=== PATIENT | female | born 1960 | race Caucasian/White ===

== ENCOUNTER 2016-08-28 05:11 | Day surgery (SDC) | payer OTHER ==
[~2016-08-28 05:11] MED LIST: ADALAT CC60 MG PO; AMB10 PO; AMERGE2.5 MG PO; ASAB PO; AUG500 PO; BRILINTA90 MG PO; FLEX PO; HYZAAR 100/25 T1 TAB PO; KLOR-CON M2020 MEQ PO; L20 PO; LOM PO; MOBIC15 MG PO; PRILOSEC OTC20 MG PO; PROAIR HFA INH; T3 PO; TOPXL100 PO; VITC500 PO; VIVELLE SY0.1 MG/24 TOP; XANAX1 MG PO; ZOL50 PO
[2016-10-26] MEDS ORDERED: DEPAKOT250 PO (14:48)
[2016-10-26] MEDS ORDERED: FLEXI JOIN1 PO (14:55)
[2016-10-26] MEDS ORDERED: PROTONIX20 MG PO (14:56)
[2016-10-26] MEDS ORDERED: VENTOLIN HFA INH (14:59)
== END 2016-08-28 07:10 | disposition home or self-care (01) ==
LOC: SDC 05:11
PROVIDERS: Orthopaedic Surgery Orthopaedic Surgery of the Spine
PROC: 3E0S33Z Introduction of Anti-inflammatory into Epidural Space, Percutaneous Approach (ICD-10-PCS; principal; 2016-08-28 07:00)
DX: M54.16 Radiculopathy, lumbar region (principal); I50.9 Heart failure, unspecified; I11.0 Hypertensive heart disease with heart failure; J44.9 Chronic obstructive pulmonary disease, unspecified; M19.90 Unspecified osteoarthritis, unspecified site; F32.9 Major depressive disorder, single episode, unspecified; M79.7 Fibromyalgia; Z90.49 Acquired absence of other specified parts of digestive tract; Z90.710 Acquired absence of both cervix and uterus
CPT/HCPCS: J2250; J3010; Q9967

== ENCOUNTER 2016-10-30 07:01 | Inpatient (IN) | payer OTHER ==
[2016-10-23 13:27] LABS: BASOPHILS 0.3 %; BASOPHILS ABSOLUTE 0.02 10/3/uL (0.0-0.16); EOSINOPHILS 3.5 %; HEMATOCRIT 40.2 % (36.0-48.0); HEMOGLOBIN 13.6 g/dL (12.0-16.0); IMMATURE GRANULOCYTES 0.2 %; IMMATURE GRANULOCYTES ABSOLUTE 0.01 10/3/uL (0.0-0.11); LYMPHOCYTES 29.1 %; LYMPHOCYTES ABSOLUTE 1.68 10/3/uL (0.67-4.30); MEAN CORPUS HGB CONC 33.8 g/dL (32.0-36.0); MEAN CORPUSCULAR HEMOGLOB 32.2 pg (26.0-34.0); MEAN CORPUSCULAR VOLUME 95.3 fL (80-100); MEAN PLATELET VOLUME 10.1 fL (9.2-13.0); MONOCYTES 6.9 %; NEUTROPHILS ABSOLUTE 3.46 10/3/uL (2.02-8.40); PLATELET COUNT 230 10/3/uL (150-400); RBC DISTRIBUTION WIDTH 13.5 % (12.0-16.0); RED CELL COUNT 4.22 10/6/uL (4.0-5.6); WHITE BLOOD CELLS 5.8 10/3/uL (4.5-10.5)
[2016-10-23 13:28] LABS: MANUAL DIFF NO %
[2016-10-23 13:42] LABS: BUN (BLOOD UREA NITROGEN) 8 MG/DL (6-23); CALCIUM, SERUM 9.5 MG/DL (8.5-10.4); CHLORIDE, SERUM 103 MMOL/L (96-112); CO2 (CARBON DIOXIDE) 30 MMOL/L (24-34); CREATININE 0.86 MG/DL (0.55-1.02); GFR AFRICAN AMERICAN 88 ML/MIN (>=60); GFR NON AFRICAN AMERICAN 76 ML/MIN (>=60); GLUCOSE, SERUM 104 MG/DL (60-99); SODIUM, SERUM 136 MMOL/L (135-148)
--- NOTE | ~2016-10-30 | OP ---
Record Of Operation [facility] [address] [place]. [address] NAME: LISSY RODRIGUEZ : 60 STATUS : ADM IN PAT#: [id number] AGE: 56 ADM/REG DATE : 10/30/16 MR#: [id number] REPORT SERV DATE: 10/31/16 DICTATED BY: ONI OSBORNE DATE: 10/31/16 REPORT STATUS : Draft TRANSCRIBED BY: MODL DATE: 10/31/16 DATE OF PROCEDURE: 10/30/2016 PREOPERATIVE DIAGNOSIS: History of left lower quadrant bulge, suspect for left inguinal hernia versus ventral hernia. POSTOPERATIVE DIAGNOSIS: No evidence of ventral or inguinal hernia. PROCEDURE: Preperitoneal and left lower quadrant exploratory laparotomy with repair of iatrogenic small bowel injury. SURGEON: Oni Osborne M.D. RESIDENT SURGEON: Xavier Mcfadden M.D. ANESTHESIA: General. ESTIMATED BLOOD LOSS: 20 mL. DETAILS OF PROCEDURE: The patient arrived in the operating suite and was placed on the table in supine position. General anesthesia was obtained via an endotracheal tube. The abdomen was prepped and draped in a sterile manner. 0.5% Marcaine with epinephrine was infiltrated just below the umbilicus. A small incision was performed. Medial edge of the left rectus sheath was then incised and the rectus muscle retracted anterolaterally. Unilateral balloon dissecting trocar was inserted. The left edge of the symphysis pubis where it was inflated, deflated, and removed. 5 mm trocars were inserted in the lower midline after a structural balloon trocar was inserted into the preperitoneal space, which was insufflated with CO2 gas to 15 mmHg pressure. There was scarring in the left lower quadrant. There is no evidence of a direct inguinal hernia. The round ligament was identified and there was no evidence of a hernia sac about yet. Once the area was adequately inspected and there was no evidence of hernia, the preperitoneal space was desufflated. Attention was then turned to the initial site and the posterior rectus sheath was then incised and a trocar introduced but immediately was noted bowel contents. Trocars were removed. The spillage was removed with suction. There appeared to be no intraperitoneal spillage. The midline incision was then lengthened and carried down through the fascia with cautery and sharp dissection until clearance into the peritoneal cavity was then obtained. Adhesions around the area of adherent bowel to the anterior abdominal wall were then cleared and the area of antimesenteric perforation grasped with [place] clamp. The area was then more fully dissected. The adherent bowel was carefully sharply dissected away and the area of injury then repaired with interrupted 3-0 silk suture. There was no other area of injury. The left lower quadrant could not be palpated. There was no evidence of hernia. Fascia was then approximated with interrupted [id number] 0 PDS sutures. Subcutaneous tissue was irrigated. Skin closure was performed with lia. Sterile dressing was applied. The patient awakened and extubated and taken to PACU. Record Of Operation [facility] [address] [place]. [address] NAME: LISSY RODRIGUEZ : 60 STATUS : ADM IN [facility]#: [id number] AGE: 56 ADM/REG DATE : 10/30/16 MR#: [id number] REPORT SERV DATE: 10/31/16 DICTATED BY: ONI OSBORNE DATE: 10/31/16 REPORT STATUS : Draft TRANSCRIBED BY: REBA DATE: 10/31/16 /REBA Oni Osborne M.D. / [id number] CC: Deepika Aparicio M.D.
--- NOTE | ~2016-10-30 | DS ---
Discharge Summary [facility] [address] [place]. [address] NAME: LISSY RODRIGUEZ : 60 STATUS : DIS IN PAT#: [id number] AGE: 56 ADM/REG DATE : 10/30/16 MR#: [id number] REPORT SERV DATE: 11/17/16 DICTATED BY: ONI OSBORNE DATE: 11/16/16 REPORT STATUS : Draft TRANSCRIBED BY: REBA DATE: 11/16/16 Data Collection from hospitalization DISCHARGE DIAGNOSES: 1. History of left lower quadrant bulge, suspect for left inguinal hernia versus ventral hernia, status post preperitoneal and left lower quadrant exploratory laparotomy with repair of iatrogenic small bowel injury - no evidence of ventral or inguinal hernia. 2. Hypertension. 3. Peripheral vascular disease. 4. Chronic obstructive pulmonary disease. 5. Tobacco use. 6. Obstructive sleep apnea - noncompliant with CPAP. 7. Anxiety disorder. 8. Chronic pain syndrome. 9. Hyperlipidemia. CONSULTATIONS: None. PROCEDURES PERFORMED: Peritoneal and left lower quadrant exploratory laparotomy with repair of iatrogenic small bowel injury on 10/30/2016. MEDICATIONS: Depakote 250 mg twice a day, Hyzaar one tablet daily, Toprol-XL 100 mg every morning, Protonix 20 mg daily, Zoloft 50 mg daily, Ambien 10 mg at bedtime, Klor-Con 20 mEq every morning, aspirin 81 mg every morning, Xanax 1 mg twice a day as needed, Flexeril 10 mg at bedtime, Tylenol with Codeine one tablet three times a day as needed, Amerge 2.5 mg as needed, Lasix 20 mg twice a day, Mobic 15 mg every morning, Adalat CC 60 mg daily, glucosamine-chondroitin two tablets daily, Ventolin two puffs via inhaler every six hours as needed, Percocet 7.5/325 as instructed, and Phenergan as instructed. CONDITION AT DISCHARGE: Stable. DISPOSITION: The patient was discharged home with diet and activities as instructed. She would follow up with me on 11/08/2016 or 11/09/2016. HOSPITAL COURSE: This is a 56-year-old female who had complained of having pain and a knot in the left lower quadrant. 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 She has longstanding irritable bowel syndrome with issues of diarrhea. She said she had taken 12 Imodium on 10/18/2016. Treatment options were discussed and it was elected to proceed with surgical intervention. She was admitted to the hospital at this time for further evaluation and treatment. Upon admission, she was taken to the operating room where she underwent the above-mentioned procedure. She tolerated this well, and there were no complications. There was no evidence of ventral or inguinal hernia. The following day, she did complain of some pruritus. She remained n.p.o. except for medications. She was changed to morphine sulfate [employer]. On 11/01/2016, her pruritus had resolved. She had no new complaints. Bowel sounds were present, but decreased. Over the next couple of days, she said she was feeling better. She was passing some flatus. Her abdomen was mildly distended. She was started on clear Discharge Summary [place] [id number] [facility]. [address] NAME: LISSY RODRIGUEZ : 60 STATUS : DIS IN [facility]#: [id number] AGE: 56 ADM/REG DATE : 10/30/16 MR#: [id number] REPORT SERV DATE: 11/17/16 DICTATED BY: ONI OSBORNE DATE: 11/16/16 REPORT STATUS : Draft TRANSCRIBED BY: REBA DATE: 11/16/16 liquids. We encouraged her to ambulate. Discharge planning was performed. On 11/03/2016, she was ambulatory. She was passing flatus. She has not had a bowel movement. She had tolerated liquids. Discharge instructions were given. Due to her improved and stable condition, she was discharged home with the above-stated instructions. Information collected by: Madelin Fuentes I submit the above information as my discharge summary. ALEXIS/REBA Oni Osborne M.D. / [id number] CC: Deepika Aparicio M.D.
[~2016-10-30 07:01] MED LIST changes: +DEPAKOT250 PO; +FLEXI JOIN1 PO; +PROTONIX20 MG PO; +VENTOLIN HFA INH
[2016-10-31 05:08] LABS: BASOPHILS 0.1 %; BASOPHILS ABSOLUTE 0.01 10/3/uL (0.0-0.16); EOSINOPHILS 0.4 %; EOSINOPHILS ABSOLUTE 0.04 10/3/uL (0.0-0.53); HEMATOCRIT 37.3 % (36.0-48.0); HEMOGLOBIN 12.4 g/dL (12.0-16.0); IMMATURE GRANULOCYTES 0.3 %; IMMATURE GRANULOCYTES ABSOLUTE 0.03 10/3/uL (0.0-0.11); LYMPHOCYTES 21.8 %; MEAN CORPUS HGB CONC 33.2 g/dL (32.0-36.0); MEAN CORPUSCULAR HEMOGLOB 32.5 pg (26.0-34.0); MEAN CORPUSCULAR VOLUME 97.6 fL (80-100); MEAN PLATELET VOLUME 10.5 fL (9.2-13.0); MONOCYTES 8.3 %; MONOCYTES ABSOLUTE 0.91 10/3/uL (0.21-1.20); NEUTROPHILS 69.1 %; PLATELET COUNT 225 10/3/uL (150-400); RBC DISTRIBUTION WIDTH 13.8 % (12.0-16.0); RED CELL COUNT 3.82 10/6/uL (4.0-5.6)
[2016-10-31 05:10] LABS: MANUAL DIFF NO %
[2016-10-31 05:27] LABS: BUN (BLOOD UREA NITROGEN) 10 MG/DL (6-23); CALCIUM, SERUM 9.1 MG/DL (8.5-10.4); CHLORIDE, SERUM 104 MMOL/L (96-112); CO2 (CARBON DIOXIDE) 28 MMOL/L (24-34); GFR AFRICAN AMERICAN 65 ML/MIN (>=60); GFR NON AFRICAN AMERICAN 56 ML/MIN (>=60); GLUCOSE, SERUM 95 MG/DL (60-99); POTASSIUM, SERUM 3.7 MMOL/L (3.5-5.3); SODIUM, SERUM 138 MMOL/L (135-148)
[2016-11-01 05:28] LABS: BASOPHILS 0.2 %; BASOPHILS ABSOLUTE 0.02 10/3/uL (0.0-0.16); EOSINOPHILS ABSOLUTE 0.08 10/3/uL (0.0-0.53); HEMATOCRIT 35.3 % (36.0-48.0); HEMOGLOBIN 11.6 g/dL (12.0-16.0); IMMATURE GRANULOCYTES 0.1 %; IMMATURE GRANULOCYTES ABSOLUTE 0.01 10/3/uL (0.0-0.11); LYMPHOCYTES 26.7 %; LYMPHOCYTES ABSOLUTE 2.18 10/3/uL (0.67-4.30); MEAN CORPUS HGB CONC 32.9 g/dL (32.0-36.0); MEAN CORPUSCULAR HEMOGLOB 32.9 pg (26.0-34.0); MEAN PLATELET VOLUME 10.7 fL (9.2-13.0); MONOCYTES 12.5 %; MONOCYTES ABSOLUTE 1.02 10/3/uL (0.21-1.20); NEUTROPHILS 59.5 %; NEUTROPHILS ABSOLUTE 4.87 10/3/uL (2.02-8.40); PLATELET COUNT 190 10/3/uL (150-400); RBC DISTRIBUTION WIDTH 13.7 % (12.0-16.0); RED CELL COUNT 3.53 10/6/uL (4.0-5.6); WHITE BLOOD CELLS 8.2 10/3/uL (4.5-10.5)
[2016-11-01 05:30] LABS: MANUAL DIFF NO %
[2016-11-01 05:37] LABS: BUN (BLOOD UREA NITROGEN) 7 MG/DL (6-23); CALCIUM, SERUM 8.7 MG/DL (8.5-10.4); CHLORIDE, SERUM 104 MMOL/L (96-112); CO2 (CARBON DIOXIDE) 32 MMOL/L (24-34); CREATININE 0.72 MG/DL (0.55-1.02); GFR AFRICAN AMERICAN 109 ML/MIN (>=60); GFR NON AFRICAN AMERICAN 94 ML/MIN (>=60); GLUCOSE, SERUM 88 MG/DL (60-99); POTASSIUM, SERUM 3.6 MMOL/L (3.5-5.3); SODIUM, SERUM 140 MMOL/L (135-148)
[2016-11-03] MEDS ORDERED: PERCOCET 7.5/321 TAB PO (09:45)
[2016-11-03] MEDS ORDERED: PR25 PO (09:46)
== END 2016-11-03 13:29 | disposition home or self-care (01) | DRG 330 ==
LOC: SDC 07:01 → 4SO 16:51
PROVIDERS: Specialist
PROC: 0DN80ZZ Release Small Intestine, Open Approach (ICD-10-PCS; 2016-10-30)
PROC: 0DQ80ZZ Repair Small Intestine, Open Approach (ICD-10-PCS; principal; 2016-10-30 08:30)
DX: K66.0 Peritoneal adhesions (postprocedural) (postinfection) (principal); K91.71 Accidental puncture and laceration of a digestive system organ or structure during a digestive system procedure
CPT/HCPCS: 80048; 85025; 93005; A9270-GY; C1726; C9113; J0690; J0694; J1200; J2250; J2270; J2370; J2405; J2710; J3010